=== PATIENT | male | born 1980 | race Hispanic/Latino ===

== ENCOUNTER 2021-01-12 20:39 | Emergency (ER) | payer OTHER ==
[~2021-01-12] VITALS: Ht 177.8 cm; Wt 102.1 kg
[2021-01-12 20:44] VITALS: BP 157/99
[2021-01-13] MEDS ORDERED: MELO7.5T12 PO (14:16)
== END 2021-01-12 23:45 | disposition left against medical advice (07) ==
LOC: EDH 20:39
DX: M25.562 Pain in left knee (principal); Z53.21 Procedure and treatment not carried out due to patient leaving prior to being seen by health care provider

== ENCOUNTER 2021-01-13 09:59 | Emergency (ER) | payer OTHER ==
[~2021-01-13] VITALS: Ht 177.8 cm; Wt 102.1 kg
[2021-01-13 10:00] VITALS: BP 147/100
[2021-01-13 10:01] VITALS: BP 147/100
[2021-01-13] MEDS ORDERED: KETOROLAC 30MG VIAL (30MG/ML) ONE (14:09)
[2021-01-13] MEDS ORDERED: MELO7.5T12 PO (14:16)
[2021-01-13] MEDS ORDERED: KETOROLAC 30MG VIAL (30MG/ML) IM ONE (14:30)
== END 2021-01-13 14:47 | disposition home or self-care (01) ==
LOC: EDH 09:59
DX: S80.02XA Contusion of left knee, initial encounter (principal); Y93.01 Activity, walking, marching and hiking; Z79.1 Long term (current) use of non-steroidal anti-inflammatories (NSAID); X58.XXXA Exposure to other specified factors, initial encounter; Y93.89 Activity, other specified; Y92.89 Other specified places as the place of occurrence of the external cause; Y99.8 Other external cause status
CPT/HCPCS: 73562; 96372; 99283; J1885

== ENCOUNTER 2023-12-13 06:22 | Emergency (ER) | payer OTHER ==
[~2023-12-13] VITALS: Ht 177.8 cm; Wt 87.1 kg
[~2023-12-13 06:22] MED LIST: MELO7.5T12 PO
[2023-12-13] MEDS ORDERED: ACET-66 PO (09:09)
[2023-12-13] MEDS ORDERED: IBUP-2077 PO (09:09)
[2023-12-13 09:51] VITALS: BP 137/95; PULSE 76; RESP 18; O2SAT 99
[2023-12-13] MEDS: KETOROLAC 15MG/ML VIAL (15MG/ML) IM ONE (09:51)
== END 2023-12-13 09:57 | disposition home or self-care (01) ==
LOC: EDH 06:22
DX: S86.811A Strain of other muscle(s) and tendon(s) at lower leg level, right leg, initial encounter (principal); Z79.899 Other long term (current) drug therapy; X58.XXXA Exposure to other specified factors, initial encounter; Y93.89 Activity, other specified; Y92.89 Other specified places as the place of occurrence of the external cause; Y99.8 Other external cause status
CPT/HCPCS: 99283; 73562; 96372; J1885